=== PATIENT | female | born 2000 | race Two or more races ===

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

== ENCOUNTER 2018-04-19 12:05 | Emergency (ER) | payer BC ==
[2018-04-19 12:14] VITALS: BP 119/57
--- NOTE | 2018-04-19 12:26 | EDPHY ---
H & P Stated Complaint: L upper leg pain x 1 week, worse today Time Seen by Provider: 04/19/18 12:13 HPI/ROS: Chief Complaint: Leg pain HPI: 17-year-old woke with pain in her left leg this morning. Hurts to bend and flex. She has been able to weight bear. No known injuries. Pain extends from the top of her knee up into her groin. No swelling. No redness. No cough. No fevers or chills. No shortness of breath. No lower leg pain or swelling. No recent periods of immobility. ROS: 10 systems were reviewed and were negative except those elements noted in the HPI. PMH: Denies Social History: No smoking, no alcohol, no recreational drug use Family History: non-contributory Physical Exam: Gen: Awake, Alert, No Distress Ext: no edema, mild left lateral anterior thigh tenderness to palpation. No erythema. No leg pain or swelling below the knee. Calves are symmetrical. Normal perfusion. 2+ DP and PT pulses. Capillary refills less than 2 sec. Sensation intact in all dermatomes. No bony tenderness. Full range of motion of her hip knee and ankle. Skin: no rash Neuro: CN II-XII intact, Sensation grossly intact, Strength 5/5 in bilateral upper and lower extremities - Personal History LMP (Females 10-55): 15-21 Days Ago Current Tetanus Diphtheria and Acellular Pertussis (TDAP): Yes Tetanus Vaccine Date: within 10 years - Medical/Surgical History Hx Asthma: No Hx Chronic Respiratory Disease: No Hx Diabetes: No Hx Cardiac Disease: No Hx Renal Disease: No Hx Cirrhosis: No Hx Alcoholism: No Hx HIV/AIDS: No Hx Splenectomy or Spleen Trauma: No Other PMH: Denies - Social History Smoking Status: Never smoked Constitutional: Initial Vital Signs Temperature (C) 36.7 C 04/19/18 12:13 Heart Rate 74 04/19/18 12:13 Respiratory Rate 16 04/19/18 12:13 Blood Pressure 119/57 L 04/19/18 12:13 O2 Sat (%) 98 04/19/18 12:13 O2 Delivery Mode Room Air Allergies/Adverse Reactions: No Known Allergies Allergy (Verified 04/19/18 12:12) Home Medications: Medication Instructions Recorded Implanted Control 07/18/17 Medical Decision Making ED Course/Re-evaluation: 17-year-old healthy female with leg pain. Does not have risk factors for DVT or clinical findings to suggest the same. She is completely neurologically intact. Normal strength. No findings suggestive of infection. Symptoms consistent with muscle strain. Will start on ibuprofen acetaminophen, follow up with primary care in 3-4 days. Departure - Departure Disposition: Home, Routine, Self-Care Clinical Impression: Leg pain Condition: Good Instructions: Leg Pain (ED) Additional Instructions: Take ibuprofen, 600 mg every 8 hr. You may alternate with acetaminophen, 1000 mg every 8 hr. Follow up with primary care physician in 3-4 days if symptoms are not improving. Referrals: NONE *PRIMARY CARE P,. [Primary Care Provider] - As per Instructions
[2018-04-19] MEDS ORDERED: IBUPROFEN 200 MG TAB PO ONE (12:27)
== END 2018-04-19 12:34 | disposition home or self-care (01) ==
LOC: CED 12:05
DX: M79.605 Pain in left leg (principal)
CPT/HCPCS: 99282-ER